=== PATIENT | female | born 2000 | race Caucasian/White ===

== ENCOUNTER → 2021-10-09 | Outpatient (CLI) | payer OTHER | LOC: COL.RAD 13:02 | DX: O36.80X0 Pregnancy with inconclusive fetal viability, not applicable or unspecified (principal); Z3A.11 11 weeks gestation of pregnancy ==

== ENCOUNTER 2021-11-11 20:02 | Emergency (ER) | payer OTHER ==
[~2021-11-11] VITALS: Ht 172.7 cm; Wt 68.2 kg
[2021-11-11 20:20] VITALS: TEMP 98.2
[2021-11-11 20:56] LABS: COLLECTION METHOD CLEAN CATCH
[2021-11-11 21:02] LABS: PH 7 (5-8); SQUAMOUS EPITHELIAL 0-2 /hpf (0-10); URINE APPEARANCE Clear (CLEAR/HAZY); URINE BACTERIA None Seen /hpf (NONE SEEN); URINE BLOOD Negative (NEGATIVE); URINE COLOR Straw (YELLOW); URINE GLUCOSE Negative (NEGATIVE); URINE KETONE Negative (NEGATIVE); URINE NITRATE Negative (NEGATIVE); URINE PROTEIN(semi-quant) Negative (NEGATIVE); URINE RBC 0-2 /hpf (0-2); URINE UROBILINOGEN Negative (NEGATIVE)
[2021-11-11 22:23] VITALS: BP 99/62; PULSE 65
== END 2021-11-11 22:26 | disposition home or self-care (01) ==
LOC: COL.ER 20:02
PROVIDERS: Personal Emergency Response Attendant
DX: O26.892 Other specified pregnancy related conditions, second trimester (principal); R10.30 Lower abdominal pain, unspecified; Z3A.16 16 weeks gestation of pregnancy

== ENCOUNTER → 2021-11-30 | Outpatient (CLI) | payer OTHER | LOC: COL.RAD 12:41 | DX: Z34.02 Encounter for supervision of normal first pregnancy, second trimester (principal); Z36.9 Encounter for antenatal screening, unspecified; Z3A.20 20 weeks gestation of pregnancy ==

== ENCOUNTER 2022-02-08 15:24 | Outpatient (CLI) | payer OTHER ==
[~2022-02-08] VITALS: Ht 172.7 cm; Wt 75.0 kg
--- NOTE | 2022-02-08 15:35 | NUR ---
Patient ambulates to [facility], FHR/TOCO monitors placed. Patient states that [facility] not doctor with [facility], she sees a technical services rep in [place]. Patient states "I have had right upper quadrant pain that goes into my back for the last week, and today it has been more intense since 0900." Patient denies any complications or labor symptoms. Plan of care discussed. VSS
[2022-02-08] MEDS ORDERED: PRENATAL TABLET PO (15:47)
[2022-02-08 16:00] VITALS: BP 114/66; PULSE 87; TEMP 98.4
[2022-02-08 16:18] LABS: COLLECTION METHOD CLEAN CATCH
[2022-02-08 16:22] LABS: BASO % 0.4 % (0.0-2.0); EOS # 0.1 K/mm3 (0.0-0.7); EOS % 1.3 % (0.0-4.0); GRAN % 70.6 % (42.2-75.2); HEMOGLOBIN 11.2 g/dl (12.5-16.0); LYMPH % 20.4 % (20.0-51.0); MEAN CELL VOLUME 90 fl (80.0-100.0); MEAN CORPUSCULAR HEMOGLOBIN 29 pg (27-31); MEAN CORPUSCULAR HGB CONC 33 g/dl (33.0-37.0); MEAN PLATELET VOLUME 9.5 fl (7.4-10.4); MONO # 0.7 K/mm3 (0.1-0.6); MONO % 6.8 % (1.7-9.3); PLATELET COUNT 268 K/mm3 (130-400); RED BLOOD COUNT 3.81 M/mm3 (4.10-5.30); REDCELL DISTRIBUTION WIDTH-CV 12.9 % (11.5-14.5)
[2022-02-08 16:23] LABS: HEMATOCRIT 34.3 % (37.0-47.0)
[2022-02-08 16:24] LABS: URINE APPEARANCE Clear (CLEAR/HAZY); URINE BLOOD TRACE-INTACT (NEGATIVE); URINE COLOR Yellow (YELLOW); URINE GLUCOSE Negative (NEGATIVE); URINE KETONE Negative (NEGATIVE); URINE NITRATE Negative (NEGATIVE); URINE PROTEIN(semi-quant) Negative (NEGATIVE); URINE UROBILINOGEN 0.2 E.U/dL (0.2-1.0)
[2022-02-08 16:25] LABS: SQUAMOUS EPITHELIAL 0-2 /hpf (0-10); URINE BACTERIA Rare /hpf (NONE SEEN); URINE RBC None Seen /hpf (0-2); URINE WBC 0-2 /hpf (0-2)
[2022-02-08 16:30] VITALS: BP 104/63; PULSE 78
[2022-02-08 16:39] LABS: ALBUMIN 2.9 gm/dL (3.5-5.0); BILIRUBIN,TOTAL 0.2 mg/dL (0.2-1.2); CALCIUM 8.7 mg/dL (8.4-10.2); CREATININE, serum 0.73 mg/dL (0.57-1.11); POTASSIUM 3.6 mmol/L (3.5-4.5); TOTAL PROTEIN 6.6 gm/dL (6.2-8.1)
--- NOTE | 2022-02-08 17:00 | NUR ---
Patient given update on results of labs and orders from that she can be discharged and follow up with primary. Patient verbalizes understanding. 1708: Patient off monitors and given discharge instructions and signs paper. 1715: Ambulates off unit.
[2022-02-08 17:08] VITALS: BP 100/65; PULSE 84
== END 2022-02-08 17:15 | disposition home or self-care (01) ==
LOC: LDRO 15:24
PROVIDERS: Obstetrics & Gynecology
DX: O99.891 Other specified diseases and conditions complicating pregnancy (principal); Z3A.00 Weeks of gestation of pregnancy not specified